=== PATIENT | male | born 1960 | race Caucasian/White ===

== ENCOUNTER 2019-11-20 07:51 | Day surgery (SDC) | payer MEDICARE, MEDICAID ==
[2019-11-12 15:00] LABS: BASOPHILS % (AUTO) 0.3 % (0-1); EOSINOPHILS % (AUTO) 0.8 % (0-6); LYMPHOCYTES # (AUTO) 1.2 X10'3 (1.1-4.8); MEAN CORPUSCULAR HEMOGLOBIN 31.8 PG (27.0-31.0); MEAN CORPUSCULAR HGB CONC 33.4 g/dL (33.0-36.5); MEAN CORPUSCULAR VOLUME 95.2 FL (78-98); MEAN PLATELET VOLUME 10.3 FL (7.4-10.4); MONOCYTES # (AUTO) 0.3 X10'3 (0-0.9); MONOCYTES % (AUTO) 10.4 % (2-12); NEUTROPHILS # (AUTO) 1.6 X10'3 (1.8-7.7); NEUTROPHILS % (AUTO) 50.5 % (42-75); PRE OP HEMATOCRIT 38.9 % (42.0-52.0); PRE OP PLATELET COUNT 112 X10'3 (140-440); RED BLOOD COUNT 4.09 X10'6 (4.70-6.10); RED CELL DISTRIBUTION WIDTH 16.4 % (11.5-14.5)
[2019-11-12 15:13] LABS: PRE OP PROTIME 10.2 SECONDS (9.0-12.0)
[2019-11-12 15:21] LABS: ALBUMIN/GLOBULIN RATIO 1.4 (1.1-1.5); ALKALINE PHOSPHATASE 86 IU/L (46-116); BLOOD UREA NITROGEN 16 MG/DL (7-18); CALCIUM 8.8 MG/DL (8.5-10.1); CHLORIDE 107 MMOL/L (99-107); CREATININE 0.94 MG/DL (0.60-1.10); PRE OP ALT 19 U/L (30-65); PRE OP ANION GAP 8 (8-16); PRE OP AST 20 U/L (10-37); PRE OP BILIRUB, TOTAL 0.6 MG/DL (0.0-1.0); PRE OP GLUCOSE 96 MG/DL (70-104); PRE OP POTASSIUM 3.9 MMOL/L (3.4-5.1); PRE OP SODIUM 142 MMOL/L (135-145); TOTAL CARBON DIOXIDE 27.1 MMOL/L (24-32); TOTAL PROTEIN 6.8 G/DL (6.4-8.2); eGFR 82 ML/MIN
[2019-11-20] VITALS (7 sets, daily range): BP systolic 121–138; BP diastolic 53–94
[~2019-11-20] VITALS: Ht 172.7 cm; Wt 65.8 kg
[~2019-11-20 07:51] MED LIST: AMPH20TA3 PO; ASCO500C17 PO; BUPR1FIL3 SL; CYAN50003 PO; DARU1TAB3 PO; DOLU50TA PO; LEVO200T8 PO; LIOT5TAB10 PO; LORA10TA7 PO; MULT-1172 PO; VANCOMYCIN INJ 1000 MG in NORMAL SALINE 250ml IV.SOLN IV ONE; ceFAZolin 2gm in dextrose, iso 50 ML IV ONE; famotidine 20mg tablet PO ONE; ringers solution, lacted 1,000 ML IV SCH
[2019-11-20] MEDS ORDERED: ringers solution, lacted 1,000 ML IV SCH (08:03)
[2019-11-20] MEDS ORDERED: morphine 2 MG/ML inj. syringe IV PRN (08:05)
[2019-11-20] MEDS ORDERED: ondansetron/PF 4mg/2ml inj IV PRN (08:05)
[2019-11-20] MEDS ORDERED: morphine 4 MG/ML inj SYRINge IV PRN (08:05)
[2019-11-20] MEDS ORDERED: HYDROmorphone inj. 0.5 MG/0.5 ML DISP.SYRIN IV PRN ×2 (08:05)
[2019-11-20] MEDS ORDERED: proCHLORperazine 10 MG/2 ml inj IV PRN (08:05)
[2019-11-20] MEDS ORDERED: dextrose 50%-water 50ml dispensing syringe IV ONE (08:34)
[2019-11-20] MEDS ORDERED: triamcinolone acetonide 40mg/ml inj ONE (09:05)
[2019-11-20] MEDS ORDERED: BUPIVAcaine/PF 2.5 mg/ml (0.25%) 30ml vial ONE (09:05)
[2019-11-20] MEDS ORDERED: sevoflurane 250ml liquid IH ONE (09:09)
[2019-11-20] MEDS ORDERED: phenylephrine 10mg/ml inj. ONE (09:09)
[2019-11-20] MEDS ORDERED: fentaNYL/PF 50MCG/1 ML 2ML syringe ONE (09:19)
[2019-11-20] MEDS ORDERED: midazolam 2 mg/2 ml injection ONE (09:59)
[2019-11-20] MEDS ORDERED: LIDOcaine 2% (20mg/ml) 5ml vial ONE (09:59)
[2019-11-20] MEDS ORDERED: propofol inj 20 ML IV ONE (09:59)
[2019-11-20] MEDS ORDERED: ROPIVAcaine 0.5% (5mg/ml) 30ml vial ONE (09:59)
[2019-11-20] MEDS ORDERED: LIDOcaine 1%/PF 5ML 10 MG/ML VIAL ONE (09:59)
[2019-11-20] MEDS ORDERED: 0.9 % SODIUM CHLORIDE 10 ML VIAL ONE (09:59)
[2019-11-20] MEDS ORDERED: ePHEDrine 50MG/ML INJ. ONE (10:00)
[2019-11-20] MEDS ORDERED: rocuronium 10mg/ml inj IV ONE (10:00)
--- NOTE | 2019-11-20 11:41 | NUR ---
Received from OR via , accompanied by Anesthesiologist DR MCCARTHY and report given by Anesthesiolgist. AWAKENS TO VOICE. VITALS STABLE. DRESSING DI. SHAWN PAIN. RUE IN IMMOBILIZER. FINGERS WARM AND PINK.
--- NOTE | 2019-11-20 12:41 | NUR ---
AWAKE AND ORIENTED. VITALS STABLE. DRESSING DI. SHAWN PAIN. HOME WITH HIS MOM AT THIS TIME.
== END 2019-11-20 12:41 | disposition home or self-care (01) ==
LOC: PAS 07:51
PROVIDERS: ATTEND Orthopaedic Surgery
DX: S43.431A Superior glenoid labrum lesion of right shoulder, initial encounter (principal); M75.41 Impingement syndrome of right shoulder; M19.011 Primary osteoarthritis, right shoulder; M94.211 Chondromalacia, right shoulder; Z85.819 Personal history of malignant neoplasm of unspecified site of lip, oral cavity, and pharynx; M75.51 Bursitis of right shoulder; F32.9 Major depressive disorder, single episode, unspecified; M19.071 Primary osteoarthritis, right ankle and foot; Z98.890 Other specified postprocedural states; Z89.421 Acquired absence of other right toe(s); X58.XXXA Exposure to other specified factors, initial encounter; E03.9 Hypothyroidism, unspecified; Y93.89 Activity, other specified; Y99.8 Other external cause status; Y92.89 Other specified places as the place of occurrence of the external cause; Z79.899 Other long term (current) drug therapy; Z87.891 Personal history of nicotine dependence
CPT/HCPCS: 29807; 29824; 29826; 36415; 64415; 71046; 80053; 82948; 85025; 85610; 85730; C1713; J2001; J2250; J2370; J2704; J3010; J3301; J3370; J3490; A4215; A4565; A4618; A6250; A6449; A7000; J2795; J7120

== ENCOUNTER 2023-08-16 20:06 | Emergency (ER) | payer MEDICARE, MEDICAID ==
[~2023-08-16] VITALS: Ht 170.2 cm; Wt 61.4 kg
[~2023-08-16 20:06] MED LIST changes: -CYAN50003 PO; +CYAN50007 PO; -VANCOMYCIN INJ 1000 MG in NORMAL SALINE 250ml IV.SOLN IV ONE; -ceFAZolin 2gm in dextrose, iso 50 ML IV ONE; -famotidine 20mg tablet PO ONE; -ringers solution, lacted 1,000 ML IV SCH
[2023-08-16 20:09] VITALS: TEMP 98.5
[2023-08-16] MEDS ORDERED: HYDROcodone/acetaminophen 10/325mg tab PO ONE (23:00)
[2023-08-17] MEDS ORDERED: HYDR-3965 PO ×2 (00:30→15:06)
[2023-08-17 01:19] VITALS: BP 137/89; PULSE 77; RESP 14; O2SAT 100
== END 2023-08-17 01:19 | disposition home or self-care (01) ==
LOC: ER 20:06
DX: S59.002A Unspecified physeal fracture of lower end of ulna, left arm, initial encounter for closed fracture (principal); Z79.899 Other long term (current) drug therapy; W19.XXXA Unspecified fall, initial encounter; Y93.89 Activity, other specified; Y92.89 Other specified places as the place of occurrence of the external cause; Y99.8 Other external cause status
CPT/HCPCS: 29125; 73110; 99284